=== PATIENT | female | born 1985 | race Two or more races ===

== ENCOUNTER 2022-02-09 16:20 | Emergency (ER) | payer MEDICAID, OTHER ==
[~2022-02-09] VITALS: Ht 167.6 cm; Wt 59.0 kg
--- NOTE | 2022-02-09 17:00 | NUR ---
PT BIB AWAKE AND ALERT AOX4. NO SOB OR DISTRESS. PT C/O PAIN TO A RECENTLY DISCOVERED BUMP TO HER LEFT BREAST. PT DENIES N/V.
--- NOTE | 2022-02-09 17:20 | NUR ---
MD DR GOLDEN AT BEDSIDE
[2022-02-09 17:30] VITALS: BP_SYST 120
--- NOTE | 2022-02-09 19:30 | NUR ---
REPORT GIVEN TO MAGALIS RN, PT STABLE. VSS
--- NOTE | 2022-02-09 22:00 | NUR ---
Patient given written and verbal discharge instructions by Dr Story in the waiting room and verbalizes understanding. ER MD discussed with patient the results and treatment provided. Patient in stable condition. ID arm band removed. no Rx of given. Patient educated on pain management and to follow up with PMD. Pain Scale 0/10. Opportunity for questions provided and answered. Medication side effect fact sheet provided.
[2022-02-09 22:01] VITALS: BP_SYST 115
== END 2022-02-09 22:01 | disposition home or self-care (01) ==
LOC: SED 16:20
DX: N60.02 Solitary cyst of left breast (principal); N64.4 Mastodynia; Z79.899 Other long term (current) drug therapy
CPT/HCPCS: 76642; 99284